=== PATIENT | female | born 1955 | race American Indian/Alaskan Native ===

== ENCOUNTER 2017-07-09 05:15 | Emergency (ER) | payer MEDICARE ==
[2017-07-09 05:16] VITALS: BMI 35.7
--- NOTE | 2017-07-09 06:48 | ED PDOC ---
Arrival/HPI - General Chief Complaint: Eye Problem Time Seen by Provider: 07/09/17 06:15 Historian: Patient - History of Present Illness Narrative History of Present Illness (Text): 07/09/17 06:45 Patient presents with subacute right-sided facial sensation changes and paralysis. She denies any other localizing paralysis no weakness in arms legs no difficulty speaking or swallowing or seeing. No history of stroke she portillo have a history of diabetes. Time/Duration: Other (2 days) Symptom Onset: Gradual Past Medical History - Provider Review Nursing Documentation Reviewed: Yes - Infectious Disease Hx of Infectious Diseases: None - Tetanus Immunization Tetanus Immunization: Unknown - Cardiac Hx Cardiac Disorders: Yes Hx Hypertension: Yes - Pulmonary Hx Respiratory Disorders: Yes Hx Asthma: Yes - Neurological Hx Neurological Disorder: No - HEENT Hx HEENT Disorder: No - Renal Hx Renal Disorder: No - Endocrine/Metabolic Hx Endocrine Disorders: Yes Hx Diabetes Mellitus Type 2: Yes - Hematological/Oncological Hx Blood Disorders: No - Integumentary Hx Dermatological Disorder: No - Musculoskeletal/Rheumatological Hx Musculoskeletal Disorders: Yes Hx Arthritis: Yes Hx Falls: No - Gastrointestinal Hx Gastrointestinal Disorders: No - Genitourinary/Gynecological Hx Genitourinary Disorders: No - Psychiatric Hx Psychophysiologic Disorder: No Hx Depression: No Hx Emotional Abuse: No Hx Physical Abuse: No Hx Substance Use: No - Surgical History Hx Section: Yes - Anesthesia Hx Anesthesia: Yes Hx Anesthesia Reactions: No Hx Malignant Hyperthermia: No - Suicidal Assessment Feels Threatened In Home Enviroment: No Family/Social History - Physician Review Nursing Documentation Reviewed: Yes Family/Social History: No Known Family HX Smoking Status: Light Smoker < 10 Cigarettes Daily Hx Alcohol Use: No Hx Substance Use: No Hx Substance Use Treatment: No Allergies/Home Meds Allergies/Adverse Reactions: Allergies No Known Allergies Allergy (Verified 07/09/17 05:48) Home Medications: Home Meds Medication Instructions Recorded Confirmed Enalapril Maleate [Vasotec] 20 mg PO DAILY 06/21/16 07/09/17 DULoxetine [Cymbalta] 30 mg PO DAILY 07/09/17 07/09/17 Oxycodone HCl/Acetaminophen 1 each PO TID PRN 07/09/17 07/09/17 [Oxycodone-Acetaminophen 5-325] Sitagliptin Phos/Metformin HCl 1 each PO BID 07/09/17 07/09/17 [Janumet 50-1,000 mg Tablet] hydroCHLOROthiazide [Microzide] 50 mg PO DAILY 07/09/17 07/09/17 Review of Systems - Patients Enrolled in [employer] Initiative [X]: A conversation was conducted with the primary medical doctor. - Review of Systems Eyes: absent: Vision Changes, Photophobia Musculoskeletal: Normal Skin: Normal Neurological: Facial Droop. absent: Headache, Dizziness, Focal Weakness, Gait Changes, Speech Changes Physical Exam Vital Signs Temp Pulse Resp BP Pulse Ox 07/09/17 05:34 98.0 F 88 18 140/76 96 Temperature: Afebrile Pulse: Regular Respiratory Rate: Normal Appearance: Positive for: Well-Appearing Pain Distress: None Mental Status: Positive for: Alert and Oriented X 3 - Systems Exam Head: Present: Atraumatic, Normocephalic Pupils: Present: PERRL Extroacular Muscles: Present: EOMI Conjunctiva: Present: Normal Mouth: Present: Moist Mucous Membranes Neck: Present: Normal Range of Motion Respiratory/Chest: Present: Clear to Auscultation, Good Air Exchange, Accessory Muscle Use. No: Respiratory Distress Cardiovascular: Present: Regular Rate and Rhythm, Normal S1, S2 Upper Extremity: Present: Normal Inspection Lower Extremity: Present: Normal Inspection Neurological: Present: GCS=15, Speech Normal, Motor Func Grossly Intact, Normal Sensory Function. 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 Ulcer: No History Surgical Site Infection Following: None - Disposition Have Diagnosis and Disposition been Completed?: Yes Diagnosis: Stapleton's palsy Disposition: HOME/ ROUTINE Disposition Time: 07:04 Patient Plan: Discharge Patient Problems: Current Active Problems Problem Status Onset Stapleton's palsy Acute Condition: IMPROVED Discharge Instructions (ExitCare): Stapleton Palsy (ED) Additional Instructions: watch your sugars carefullly, followup with dr. Cohen about your sugars. Prescriptions: Erythromycin 0.5% [Ilytocin] 3.5 gm OP BID 5 Days tube Methylprednisolone [Medrol Dose Pack (21 tabs)] 4 mg PO DAILY #21 mg Valacyclovir HCl [Valacyclovir] 500 mg PO BID 5 Days #10 tab Referrals: Lang Cohen MD [Primary Care Provider] - Follow up with primary Forms: [employer] (Tajik)
[2017-07-09 07:25] VITALS: BP 132/71; PULSE 71; RESP 20; TEMP 98; O2SAT 98
== END 2017-07-09 07:31 | disposition home or self-care (01) ==
LOC: ED 05:15
DX: G51.0 Bell's palsy (principal); I10 Essential (primary) hypertension; F17.210 Nicotine dependence, cigarettes, uncomplicated

== ENCOUNTER 2017-09-30 06:21 | Emergency (ER) | payer MEDICARE ==
[2017-09-30 06:22] VITALS: BMI 35.7
[2017-09-30 06:36] VITALS: BP 133/69; PULSE 87; RESP 18; TEMP 98.1; O2SAT 98
--- NOTE | 2017-09-30 07:23 | ED PDOC ---
Arrival/HPI - General Chief Complaint: Cough, Cold, Congestion Time Seen by Provider: 09/30/17 06:44 Historian: Patient - History of Present Illness Narrative History of Present Illness (Text): 09/30/17 07:21 62 year old female, with past medical history of hypertension, diabetes, asthma and arthritis, presents to the Emergency department complaining of mild cough, congestion and sore throat for past couple days. Patient informs associated headache from coughing. Patient denies any fever, chills, nausea, vomiting, diarrhea, abdominal pain, chest pain, shortness of breath or any other complaints. PMD: Dr. Cohen Time/Duration: < week Symptom Course: Unchanged Activities at Onset: Light Context: Home Past Medical History - Provider Review Nursing Documentation Reviewed: Yes - Infectious Disease Hx of Infectious Diseases: None - Tetanus Immunization Tetanus Immunization: Unknown - Cardiac Hx Cardiac Disorders: Yes Hx Hypertension: Yes - Pulmonary Hx Respiratory Disorders: Yes Hx Asthma: Yes - Neurological Hx Neurological Disorder: No - HEENT Hx HEENT Disorder: No - Renal Hx Renal Disorder: No - Endocrine/Metabolic Hx Endocrine Disorders: Yes Hx Diabetes Mellitus Type 2: Yes - Hematological/Oncological Hx Blood Disorders: No - Integumentary Hx Dermatological Disorder: No - Musculoskeletal/Rheumatological Hx Musculoskeletal Disorders: Yes Hx Arthritis: Yes Hx Falls: No - Gastrointestinal Hx Gastrointestinal Disorders: No - Genitourinary/Gynecological Hx Genitourinary Disorders: No - Psychiatric Hx Psychophysiologic Disorder: No Hx Depression: No Hx Emotional Abuse: No Hx Physical Abuse: No Hx Substance Use: No - Surgical History Hx Section: Yes - Anesthesia Hx Anesthesia: Yes Hx Anesthesia Reactions: No Hx Malignant Hyperthermia: No - Suicidal Assessment Feels Threatened In Home Enviroment: No Family/Social History - Physician Review Nursing Documentation Reviewed: Yes Family/Social History: Unknown Family HX Smoking Status: Light Smoker < 10 Cigarettes Daily Hx Alcohol Use: No Hx Substance Use: No Hx Substance Use Treatment: No Allergies/Home Meds Allergies/Adverse Reactions: Allergies No Known Allergies Allergy (Verified 07/09/17 05:48) Home Medications: Home Meds Medication Instructions Recorded Confirmed Enalapril Maleate [Vasotec] 20 mg PO DAILY 09/30/17 09/30/17 Simvastatin 10 mg PO DAILY 09/30/17 09/30/17 Sitagliptin Phos/Metformin HCl 1 each PO BID 09/30/17 09/30/17 [Janumet 50-1,000 mg Tablet] hydroCHLOROthiazide [Microzide] 50 mg PO DAILY 09/30/17 09/30/17 oxyCODONE [oxyCODONE Immediate 5 mg PO PRN PRN 09/30/17 09/30/17 Release Tab] Review of Systems - Physician Review All systems were reviewed & negative as marked: Yes - Review of Systems Constitutional: Normal. absent: Fevers Eyes: Normal ENT: Sore Throat, Sinus Congestion Respiratory: Cough. absent: SOB Cardiovascular: Normal. absent: Chest Pain Gastrointestinal: Normal. absent: Abdominal Pain, Diarrhea, Nausea, Vomiting Genitourinary Female: Normal Musculoskeletal: Normal Skin: Normal Neurological: Normal Endocrine: Normal Hemo/Lymphatic: Normal Psychiatric: Normal Physical Exam Vital Signs Reviewed: Yes Vital Signs Temp Pulse Resp BP Pulse Ox 09/30/17 06:34 98.1 F 87 18 133/69 98 Temperature: Afebrile Blood Pressure: Normal Pulse: Regular Respiratory Rate: Normal Appearance: Positive for: Well-Appearing, Non-Toxic, Comfortable Pain Distress: None Mental Status: Positive for: Alert and Oriented X 3 - Systems Exam Head: Present: Atraumatic, Normocephalic Pupils: Present: PERRL Extroacular Muscles: Present: EOMI Conjunctiva: Present: Normal Mouth: Present: Moist Mucous Membranes Pharnyx: Present: ERYTHEMA (mild ) Neck: Present: Normal Range of Motion Respiratory/Chest: Present: Clear to Auscultation, Good Air Exchange. No: Respiratory Distress, Accessory Muscle Use Cardiovascular: Present: Regular Rate and Rhythm, Normal S1, S2. No: Murmurs Abdomen: Present: Normal Bowel Sounds. No: Tenderness, Distention, Peritoneal Signs Upper Extremity: Present: Normal Inspection. No: Cyanosis, Edema Lower Extremity: Present: Normal Inspection. No: Edema Neurological: Present: GCS=15, CN II-XII Intact, Speech Normal Skin: Present: Warm, Dry, Normal Color. No: Rashes Psychiatric: Present: Alert, Oriented x 3, Normal Insight, Normal Concentration Medical Decision Making ED Course and Treatment: 09/30/17 07:25 Impression: 62 year old female presents to the Emergency department for cough, sore throat, sinus congestion and headache. Plan: -- Reassess and disposition Progress Notes: 09/30/17 07:30 Patient refuses X-ray. Patient desires to get the flu swab performed only. - Scribe Statement The provider has reviewed the documentation as recorded by the Scribe Vincent Jasso. All medical record entries made by the Scribe were at my direction and personally dictated by me. I have reviewed the chart and agree that the record accurately reflects my personal performance of the history, physical exam, medical decision making, and the department course for this patient. I have also personally directed, reviewed, and agree with the discharge instructions and disposition. Disposition/Present on Arrival - Present on Arrival Any Indicators Present on Arrival: No History of DVT/PE: No History of Uncontrolled Diabetes: Yes Urinary Catheter: No History of Decub. Ulcer: No History Surgical Site Infection Following: None - Disposition Have Diagnosis and Disposition been Completed?: Yes Diagnosis: Influenza-like illness Disposition: HOME/ ROUTINE Disposition Time: 08:00 Condition: STABLE Discharge Instructions (ExitCare): Influenza (ED), Viral Syndrome (ED) Additional Instructions: please follow up with your doctor. return toe r with worsneing symptoms or concerns. you are declining an xray, however you are able to return to er with worsening symptoms or concerns. Prescriptions: Oseltamivir Phosphate [Tamiflu] 75 mg PO BID #10 capsule Referrals: Lang Cohen MD [Primary Care Provider] - Follow up with primary Forms: [employer] (Polish)
== END 2017-09-30 07:35 | disposition home or self-care (01) ==
LOC: ED 06:21
DX: J11.1 Influenza due to unidentified influenza virus with other respiratory manifestations (principal); F17.210 Nicotine dependence, cigarettes, uncomplicated

== ENCOUNTER 2018-04-04 20:21 | Emergency (ER) | payer MEDICARE ==
[2018-04-04 20:22] VITALS: BMI 35.7
[2018-04-04 20:32] VITALS: TEMP 98.4
--- NOTE | 2018-04-04 20:43 | ED PDOC ---
"Arrival/HPI - General Chief Complaint: GI Problem Time Seen by Provider: 04/04/18 20:38 Historian: Patient - History of Present Illness Narrative History of Present Illness (Text): 04/04/18 20:38 62 y/o female, pmh including htn/hld/dm, nkda, c/o generalized abdominal pain with nausea/vomiting started this evening after eating fried chicken. Aching pain, generalized, more up on the upper abdomen region, no fever or chills, no urinary symptoms, no night sweat, no chest pain or shortness of breath, no other medical or psychological complaints. Past Medical History - Provider Review Nursing Documentation Reviewed: Yes - Infectious Disease Hx of Infectious Diseases: None - Tetanus Immunization Tetanus Immunization: Unknown - Cardiac Hx Cardiac Disorders: Yes Hx Hypertension: Yes - Pulmonary Hx Respiratory Disorders: Yes Hx Asthma: Yes - Neurological Hx Neurological Disorder: No - HEENT Hx HEENT Disorder: No - Renal Hx Renal Disorder: No - Endocrine/Metabolic Hx Endocrine Disorders: Yes Hx Diabetes Mellitus Type 2: Yes - Hematological/Oncological Hx Blood Disorders: No - Integumentary Hx Dermatological Disorder: No - Musculoskeletal/Rheumatological Hx Musculoskeletal Disorders: Yes Hx Arthritis: Yes Hx Falls: No - Gastrointestinal Hx Gastrointestinal Disorders: No - Genitourinary/Gynecological Hx Genitourinary Disorders: No - Psychiatric Hx Psychophysiologic Disorder: No Hx Depression: No Hx Emotional Abuse: No Hx Physical Abuse: No Hx Substance Use: No - Surgical History Hx Section: Yes - Anesthesia Hx Anesthesia: Yes Hx Anesthesia Reactions: No Hx Malignant Hyperthermia: No - Suicidal Assessment Feels Threatened In Home Enviroment: No Family/Social History - Physician Review Nursing Documentation Reviewed: Yes Family/Social History: Unknown Family HX Smoking Status: Light Smoker < 10 Cigarettes Daily Hx Alcohol Use: No Hx Substance Use: No Hx Substance Use Treatment: No Allergies/Home Meds Allergies/Adverse Reactions: Allergies No Known Allergies Allergy (Verified 07/09/17 05:48) Home Medications: Home Meds Medication Instructions Recorded Confirmed Enalapril Maleate [Vasotec] 20 mg PO DAILY 09/30/17 04/04/18 Simvastatin 10 mg PO DAILY 09/30/17 04/04/18 Sitagliptin Phos/Metformin HCl 1 each PO BID 09/30/17 04/04/18 [Janumet 50-1,000 mg Tablet] hydroCHLOROthiazide [Microzide] 50 mg PO DAILY 09/30/17 04/04/18 oxyCODONE [oxyCODONE Immediate 5 mg PO PRN PRN 09/30/17 04/04/18 Release Tab] Review of Systems - Review of Systems Constitutional: absent: Fatigue, Fevers Eyes: absent: Vision Changes ENT: absent: Hearing Changes Respiratory: absent: SOB, Cough Cardiovascular: absent: Chest Pain Gastrointestinal: Abdominal Pain, Nausea, Vomiting. absent: Diarrhea Musculoskeletal: absent: Arthralgias, Back Pain Skin: absent: Rash, Pruritis Neurological: absent: Headache, Dizziness Psychiatric: absent: Anxiety, Depression, Suicidal Ideation Physical Exam Vital Signs Reviewed: Yes Vital Signs Temp Pulse Resp BP Pulse Ox 04/04/18 20:31 98.4 F 95 H 18 122/65 96 Temperature: Afebrile Blood Pressure: Normal Pulse: Regular Respiratory Rate: Normal Appearance: Positive for: Well-Appearing, Non-Toxic, Comfortable Pain Distress: Mild Mental Status: Positive for: Alert and Oriented X 3 - Systems Exam Head: Present: Atraumatic, Normocephalic Pupils: Present: PERRL Extroacular Muscles: Present: EOMI Conjunctiva: Present: Normal Mouth: Present: Moist Mucous Membranes Neck: Present: Normal Range of Motion Respiratory/Chest: Present: Clear to Auscultation, Good Air Exchange. No: Respiratory Distress, Accessory Muscle Use Cardiovascular: Present: Regular Rate and Rhythm, Normal S1, S2. No: Murmurs Abdomen: Present: Tenderness (+epigastric region). No: Distention, Peritoneal Signs, Rebound, Guarding Back: Present: Normal Inspection Upper Extremity: Present: Normal Inspection. No: Cyanosis, Edema Lower Extremity: Present: Normal Inspection. No: Edema Neurological: Present: GCS=15, CN II-XII Intact, Speech Normal Skin: Present: Warm, Dry, Normal Color. No: Rashes Psychiatric: Present: Alert, Oriented x 3, Normal Insight, Normal Concentration Medical Decision Making ED Course and Treatment: 04/04/18 20:52 Differential: Cholecystitis vs. Colitis vs. Bowel obstruction vs. Appendicitis vs. UTI -labs/ua -CT abdomen and pelvis -Gallbladder sonogram -EKG -IVF/pepcid/zofran -Observe and reassess 04/04/18 23:20 -EKG: SR @ 80 BPM, no ST elevation or depression, no T wave inversion. -Gall bladder sonogram: Gallbladder stones and sludge is present. -CT abdomen and pelvis: 1. The uterus is lobulated in appearance with numerous calcifications probably representing fibroids, incompletely characterized. Adnexal structures are identified but incompletely characterized. 2. Prominent calcified and non-calcified right lower quadrant lymph nodes present. 3. The gallbladder is diffusely dense in appearance likely representing gallbladder stones and sludge. 4. Hypodensity in the right kidney measures 1.3 cm likely representing a cyst. -Labs show no acute findings except potassium 3.5 (potassium chloride 20meq po ordered) -Lipase within normal limit. -UA show no UTI -All labs and radiology results discussed with the patient, advised closed follow up with the pmd and GI/obgyn -Pt. has no pain now, eating and drinking well, request to be discharged home. -Discharge home with pepcid, zofran, bed rest, follow up with your own pmd and obgyn/GI within 2 days, return to the ER for any new or worsening signs or symptoms. - Lab Interpretations Lab Results: 04/04/18 20:35 04/04/18 20:35 Lab Results 04/04/18 22:35: Urine Color Yellow, Urine Appearance Clear, Urine pH 6.0, Ur Specific [place] 1.020, Urine Protein 100 H, Urine Glucose (UA) Negative, Urine Ketones Negative, Urine Blood Negative, Urine Nitrate Negative, Urine Bilirubin Negative, Urine Urobilinogen 0.2, Ur Leukocyte Esterase Negative, Urine RBC 0 - 2, Urine WBC 1 - 3, Ur Epithelial Cells 6 - 8, Amorphous Sediment Few, Urine Bacteria Many, Fine Granular Casts 0 - 2, Coarse Granular Casts Trace H, Urine Other Fiber 04/04/18 20:35: Sodium 139, Potassium 3.5 L, Chloride 100, Carbon Dioxide 25, Anion Gap 18, BUN 17, Creatinine 0.7, Est GFR ( Amer) > 60, Est GFR (Non- Af Amer) > 60, Random Glucose 171 H, Calcium 9.7, Total Bilirubin 0.7, AST 47 H , ALT 50, Alkaline Phosphatase 68, Total Protein 8.4 H, Albumin 4.5, Globulin 3.9, Albumin/Globulin Ratio 1.2, Lipase 250 04/04/18 20:35: WBC 10.4 D, RBC 4.59, Hgb 13.7, Hct 40.7, MCV 88.7, MCH 29.8, MCHC 33.7, RDW 12.6, Plt Count 286, MPV 10.7, Gran % 73.7 H, Lymph % (Auto) 20.4 L, [place] % (Auto) 5.2, Eos % (Auto) 0.6 L, Baso % (Auto) 0.1, Gran # 7.69 H , Lymph # (Auto) 2.1, [place] # (Auto) 0.5, Eos # (Auto) 0.1, Baso # (Auto) 0.01 I have reviewed the lab results: Yes - RAD Interpretation Narrative RAD Interpretations (Text): 04/04/18 20:53 CT abdomen and pelvis: Gall bladder sonogram: Radiology Orders: 04/04/18 20:49 ABD & PELVIS IV CONTRAST ONLY [CT] Stat GALL BLADDER [US] Stat CT abdomen and pelvis: Lower thorax: Mild peribronchial thickening in patchy groundglass alveolar densities in the lung bases, nonspecific. ABDOMEN: Liver: Hypodensity in the liver, may represent a cyst, to small to characterize. Gallbladder and bile ducts: The gallbladder is diffusely dense in appearance likely representing gallbladder stones and sludge. Pancreas: . No ductal dilation. Spleen: . No splenomegaly. Adrenals: Mild nodular thickening of the left adrenal gland is present. MELONY BAUTISTA | Preliminary Radiology Report GRIPS (QA) DISCREPANCY? If there is a discrepancy between the preliminary and final interpretation, please notify [facility] via [email or web address]. If you do not have access to our QA portal, call our QA team at [phone] CONFIDENTIALITY STATEMENT This report is intended only for the use of the referring physician, and only in accordance with law, If you received this in error, call [phone] Page 2 of 2 Kidneys and ureters: Hypodensity in the right kidney measures 1.3 cm likely representing a cyst. Stomach and bowel: Normal. No obstruction. No mucosal thickening. Appendix: No evidence of appendicitis. PELVIS: Bladder: Unremarkable as visualized. Reproductive: The uterus is lobulated in appearance with numerous calcifications probably representing fibroids, incompletely characterized. Adnexal structures are identified but incompletely characterized. ABDOMEN and PELVIS: Intraperitoneal space: No free air. No significant fluid collection. Bones/joints: No acute fracture. No dislocation. Soft tissues: Unremarkable. Vasculature: Vascular calcifications present. Lymph nodes: Prominent calcified and non-calcified right lower quadrant lymph nodes present. Other findings: Degenerative changes. IMPRESSION: 1. The uterus is lobulated in appearance with numerous calcifications probably representing fibroids, incompletely characterized. Adnexal structures are identified but incompletely characterized. 2. Prominent calcified and non-calcified right lower quadrant lymph nodes present. 3. The gallbladder is diffusely dense in appearance likely representing gallbladder stones and sludge. 4. Hypodensity in the right kidney measures 1.3 cm likely representing a cyst. Thank you for allowing us to participate in the care of your patient. Dictated and Authenticated by: Candice Good MD 04/04/2018 10:43 PM Eastern Time ([place] & [place]) Gall bladder sonogram: FINDINGS: Liver: There is increased echogenicity in the liver diffusely. Gallbladder: Gallbladder stones and sludge is present. Gallbladder wall measures 0.15 cm. Common bile duct: Common bile duct measures 6 mm. Pancreas: Pancreas grossly normal although the tail is not clearly visualized. Examination is suboptimal secondary to patient's body habitus. Right kidney: Right kidney measures 12.2 x 5.5 x 5.8 cm. IMPRESSION: Gallbladder stones and sludge is present. Thank you for allowing us to participate in the care of your patient. Dictated and Authenticated by: Candice Good MD 04/04/2018 10:36 PM Eastern Time ([place] & [place]) Airline Pilot Flight Instructor: Radiologist - EKG Interpretation EKG Interpretation (Text): 04/04/18 23:20 -EKG: SR @ 80 BPM, no ST elevation or depression, no T wave inversion. Interpreted by ED Physician: Yes Type: 12 lead EKG - Medication Orders Current Medication Orders: Sodium Chloride (Sodium Chloride 0.9%) 1,000 mls @ 100 mls/hr IV .Q10H ABAD Last Admin: 04/04/18 21:23 Dose: 100 mls/hr eMAR Start Stop Document 04/04/18 21:23 CNR (Rec: 04/04/18 21:24 CNR [id number]) Intravenous Solution Start Date 04/04/18 Start Time 21:24 Discontinued Medications Famotidine (Pepcid) 20 mg IVP STAT STA Stop: 04/04/18 20:50 Last Admin: 04/04/18 21:24 Dose: 20 mg IVP Administration Document 04/04/18 21:24 CNR (Rec: 04/04/18 21:24 CNR [id number]) Charges for Administration # of IVP Administrations 1 Ondansetron HCl (Zofran Inj) 4 mg IVP STAT STA Stop: 04/04/18 20:50 Last Admin: 04/04/18 21:24 Dose: 4 mg IVP Administration Document 04/04/18 21:24 CNR (Rec: 04/04/18 21:24 CNR [id number]) Charges for Administration # of IVP Administrations 1 Potassium Chloride (K-Dur 20 Meq Er Tab) 20 meq PO STAT STA Stop: 04/04/18 22:06 Last Admin: 04/04/18 22:22 Dose: 20 meq - PA / LOW VISION THERAPIST / Resident Statement MD/DO has reviewed & agrees with the documentation as recorded. Disposition/Present on Arrival - Present on Arrival Any Indicators Present on Arrival: No History of DVT/PE: No History of Uncontrolled Diabetes: Yes Urinary Catheter: No History of Decub. Ulcer: No History Surgical Site Infection Following: None - Disposition Have Diagnosis and Disposition been Completed?: Yes Diagnosis: Abdominal pain, Uterine fibroid, Cholelithiasis, Nausea and vomiting, Renal cyst Disposition: HOME/ ROUTINE Disposition Time: 23:23 Patient Plan: Discharge Condition: IMPROVED Additional Instructions: -Discharge home with pepcid, zofran, bed rest, follow up with your own pmd and obgyn/GI/surgeon within 2 days, return to the ER for any new or worsening signs or symptoms. Prescriptions: Famotidine [Pepcid] 20 mg PO BID #22 tab Ondansetron [Zofran] 4 mg PO Q8H PRN #12 tab PRN Reason: Other Referrals: Lang Cohen MD [Primary Care Provider] - Follow up with primary Ariel Kinney MD [Staff Provider] - Follow up with primary Allan Ronquillo MD [Medical Doctor] - Follow up with primary Bennie Light MD [Staff Provider] - Follow up with primary Francois Ward MD [Staff Provider] - Follow up with primary Forms: [facility] (Czech), WORK NOTE"
[2018-04-04] MEDS ORDERED: Sodium Chloride 0.9% 1,000 ML IV SCH (21:00)
[2018-04-04 21:32] LABS: ALB/GLOB RATIO 1.2 (1.1-1.8); ALBUMIN 4.5 g/dL (3.0-4.8); ALT/SGPT 50 U/L (7-56); AST/SGOT 47 U/L (14-36); BASO # 0.01 K/mm3 (0.0-2.0); BASO % 0.1 % (0.0-3.0); BLOOD UREA NITROGEN 17 mg/dL (7-21); CALCIUM 9.7 mg/dL (8.4-10.5); EOS # 0.1 (0.0-0.7); EOS % 0.6 % (1.5-5.0); GFR AFRICAN-AMERICAN > 60; GFR NON-AFRICAN AMERICAN > 60; GRAN # 7.69 (1.4-6.5); GRAN % 73.7 % (50.0-68.0); HEMOGLOBIN 13.7 g/dL (12.0-16.0); LIPASE 250 U/L (23-300); LYMPH # 2.1 (1.2-3.4); LYMPH % 20.4 % (22.0-35.0); MEAN CELL VOLUME 88.7 fl (80.0-105.0); MEAN CORPUSCULAR HEMOGLOBIN 29.8 pg (25.0-35.0); MEAN CORPUSCULAR HGB CONC 33.7 g/dl (31.0-37.0); MEAN PLATELET VOLUME 10.7 fl (7.0-11.0); MONO # 0.5 (0.1-0.6); MONO % 5.2 % (1.0-6.0); RBC 4.59 10^6/uL (3.5-6.1); RED CELL DISTRIBUTION WIDTH 12.6 % (11.5-14.5); WHITE BLOOD COUNT 10.4 10^3/ul (4.5-11.0)
[2018-04-04] MEDS ORDERED: Iohexol 350 MG/100 ML VIAL ONE (21:41)
[2018-04-04] MEDS ORDERED: Potassium Chloride 20 mEq ER Tab PO STA (22:05)
[2018-04-04 22:55] LABS: URINE APPEARANCE CLEAR (CLEAR); URINE BILIRUBIN NEGATIVE (NEGATIVE); URINE BLOOD NEGATIVE (NEGATIVE); URINE COLOR YELLOW (YELLOW); URINE GLUCOSE (UA) NEGATIVE (NEGATIVE); URINE LEUKOCYTE ESTERASE NEGATIVE Leu/uL (NEGATIVE); URINE PROTEIN 100 mg/dL (<30 mg/dL); URINE UROBILINOGEN 0.2 E.U./dL (<1 E.U./dL)
[2018-04-04 23:03] LABS: URINE BACTERIA MANY (NEG); URINE RBC 0 - 2 /hpf (0-2)
[2018-04-04 23:04] LABS: URINE AMORPHOUS SEDIMENT FEW; URINE COARSE GRANULAR CAST TRACE /hpf (0-2); URINE FINE GRANULAR CAST 0 - 2 /hpf (0-2)
[2018-04-04 23:32] VITALS: BP 116/72; PULSE 75; RESP 17; O2SAT 99
--- NOTE | 2018-04-05 09:56 | CARD ---
APPROVED REPORT Date of service: 04/04/2018 EKG Measurement Heart [id number] <Conclusion> Normal sinus rhythm Septal infarct, age undetermined Abnormal ECG
--- NOTE | 2018-04-05 10:46 | US ---
Date of service: 04/04/2018 HISTORY: abdominal pain COMPARISON: None. TECHNIQUE: Sonographic evaluation of the right upper quadrant of the abdomen. FINDINGS: LIVER: Measures 21.6 cm in length. Hepatopedal blood flow. Fatty infiltration manifest ultrasonographically as increased echogenicity of the liver parenchyma. No mass. No intrahepatic bile duct dilatation. GALLBLADDER: Cholelithiasis. Negative study for gallbladder wall thickening, pericholecystic fluid, sonographic Amor's sign. Incidental finding(s): Sludge identified. COMMON BILE DUCT: Measures 6.0 mm. No stones. No dilatation. PANCREAS: Unremarkable as visualized. No mass. No ductal dilatation. RIGHT KIDNEY: Measures 5.5 x 12.2 cm in length. Normal echogenicity. No calculus, mass, or hydronephrosis. AORTA: No aneurysmal dilatation. IVC: Unremarkable. OTHER FINDINGS: None . IMPRESSION: Cholelithiasis. Sludge. No sonographic evidence of acute cholecystitis. Concordant results (preliminary interpretation) provided by [employer]. Procedure Completed: 22:06. Preliminary ([facility]) Report: Dictated and Authenticated: 22:36. Final Interpretation: 10:44
--- NOTE | 2018-04-05 12:19 | CT ---
Date of service: 04/04/2018 PROCEDURE: CT Abdomen and Pelvis with contrast HISTORY: abdominal pain COMPARISON: None. TECHNIQUE: Contrast dose: 100 cc of Omni 350 Radiation dose: Total exam DLP = 892 mGy-cm. This CT exam was performed using one or more of the following dose reduction techniques: Automated exposure control, adjustment of the mA and/or kV according to patient size, and/or use of iterative reconstruction technique. FINDINGS: LOWER THORAX: Unremarkable. LIVER: Unremarkable. No gross lesion or ductal dilatation. GALLBLADDER AND BILE DUCTS: The gallbladder is filled with dense sludge. PANCREAS: Unremarkable. No gross lesion or ductal dilatation. SPLEEN: Unremarkable. ADRENALS: Unremarkable. No mass. KIDNEYS AND URETERS: Unremarkable. No hydronephrosis. No solid mass. VASCULATURE: Unremarkable. No aortic aneurysm. BOWEL: Unremarkable. No obstruction. No gross mural thickening. APPENDIX: Normal appendix. PERITONEUM: Unremarkable. No free fluid. No free air. LYMPH NODES: Unremarkable. No enlarged lymph nodes. BLADDER: Unremarkable. REPRODUCTIVE: Calcified fibroid. BONES: No acute fracture. OTHER FINDINGS: The report concurs with the preliminary [facility] report IMPRESSION: No acute intra-abdominal findings
== END 2018-04-04 23:34 | disposition home or self-care (01) ==
LOC: ED 20:21
DX: K80.20 Calculus of gallbladder without cholecystitis without obstruction (principal); N28.1 Cyst of kidney, acquired; D25.9 Leiomyoma of uterus, unspecified; R10.9 Unspecified abdominal pain; R11.2 Nausea with vomiting, unspecified; I10 Essential (primary) hypertension; E11.65 Type 2 diabetes mellitus with hyperglycemia; F17.210 Nicotine dependence, cigarettes, uncomplicated
CPT/HCPCS: 74177; 76705; 80053; 81001; 83690; 85025; 93005; 96374; 96375; 99284; J2405; J7030; Q9967